=== PATIENT | male | born 1985 | race Caucasian/White ===

== ENCOUNTER 2019-02-24 14:08 | Inpatient (IN) | payer SELFPAY | END 2019-02-28 09:15 | disposition home or self-care (01) | LOC: YASAS 14:08 → Y6N 02-26 18:09 ==

== ENCOUNTER 2020-07-06 09:58 | Inpatient (IN) | payer OTHER ==
--- OUTSIDE RECORDS SUMMARY | 2020-07-06 10:01 | XMS ---
:1985 Author Organization [facility] Support Name Relationship Address Phone APOLONIA THOMPSON PARTNER [address] [place] [address] CHRISTIAN POLLACK SISTER [address] [place] [address] UE Unavailable Unavailable Unavailable GENE GREENWOOD SELF / SAME PATIENT [address] [place] [address] Re-disclosure Warning The records that you are about to access may contain information from federally- assisted alcohol or drug abuse programs. If such information is present, then the following federally mandated warning applies: This information has been disclosed to you from records protected by federal confidentiality rules (42 CFR part 2). The federal rules prohibit you from making any further disclosure of this information unless further disclosure is expressly permitted by the written consent of the person to whom it pertains or as otherwise permitted by 42 CFR part 2. A general authorization for the release of medical or other information is NOT sufficient for this purpose. The Federal rules restrict any use of the information to criminally investigate or prosecute any alcohol or drug abuse patient.The records that you are about to access may contain highly sensitive health information, the redisclosure of which is protected by Article 27-F of the [facility] Public Health law. If you continue you may haveaccess to information: Regarding HIV / AIDS; Provided by facilities licensed or operated by the [facility] Office of Mental Health; or Provided by the [facility] Office for People With Developmental Disabilities. If such information is present, then the following [facility] mandated warning applies: This information has been disclosed to you from confidential records which are protected by state law. State law prohibits you from making any further disclosure of this information without the specific written consent of the person to whom it pertains, or as otherwise permitted by law. Any unauthorized further disclosure in violation of state law may result in a fine or mcc sentence or both. A general authorization for the release of medical or other information is NOT sufficient authorization for further disclosure. Insurance Providers Payer name Policy type Policy ID Covered Covered libertarian's Policy P dona / Coverage libertarian ID relationship to [place] Inf ormation type mcintyre [facility] [id number] SP [id number] STRGY-AFF SELF PAY SP INSURANCE
--- NOTE | 2020-07-06 12:08 | BHS.RME ---
Substance Use & Tx History - Substance Use History Alcohol Substance amount: 2 pints vodka, 2 tall cans Frequency of use: Daily Substance route: Oral Date of Last Use: 07/05/20 Marijuana/Hashish Substance amount: 10/24 Frequency of use: Daily Substance route: Smoking Date of Last Use: 07/05/20 - Last Treatment Date of last treatment: 02/24/19 Where was last treatment: Detox Physical/Psych/Mental Status - Behavior General Behavior: Increased activity (restlessness, agitation) Eye Contact: Normal - Cooperativeness Cooperativeness: Cooperative - Thinking Thought Processes: Tight Thought content: Future oriented Perceptions: Delusions (paranoid, grandiose, bizarre) - Physical Health Problems Is patient presently having any pain?: No Does patient presently have any injuries (include location): No Does patient currently have a fever: No CIWA Nausea/Vomitin Muscle Tremors: 2 Anxiety: 2 Agitation: 2 Paroxysmal Sweats: 2 Orientation: 0-Oriented Tacttile Disturbances: 0-None Auditory Disturbances: 1-Very Mild Visual Disturbances: 0-None Headache: 2-Mild CIWA-Ar Total Score: 13
[2020-07-06 12:30] VITALS: BMI 23.7
--- OUTSIDE RECORDS SUMMARY | 2020-07-06 12:44 | XMS ---
:1985 Author Organization [facility] Support Name Relationship Address Phone APOLONIA THOMPSON PARTNER [address] [place] [address] CHRISTIAN POLLACK SISTER [address] [place] [address] UE Unavailable Unavailable Unavailable GENE GREENWOOD SELF / SAME PATIENT [address] [place] [address] Re-disclosure Warning The records that you are [...] is protected by Article 27-F of the [facility] Public Health law. If you continue you may haveaccess to information: Regarding HIV / AIDS; Provided by facilities licensed or operated by the [facility] Office of Mental Health; or Provided by the [facility] Office for People With Developmental Disabilities. If such information is present, then the following [facility] mandated warning applies: This information has been [...] law may result in a fine or custodial sentence or both. A general authorization for the release of medical or other information is NOT sufficient authorization for further disclosure. Insurance Providers Payer name Policy type Policy ID Covered Covered libertarian's Policy P dona / Coverage libertarian ID relationship to [employer] Inf ormation type mcintyre [employer] [id number] STRGY-AFF [employer] [id number] SP [id number] STRGY-AFF SELF PAY SP INSURANCE
--- NOTE | 2020-07-06 13:00 | HP ---
CIWA Score Nausea/Vomitin Muscle Tremors: 2 Anxiety: 2 Agitation: 2 Paroxysmal Sweats: 2 Orientation: 0-Oriented Tacttile Disturbances: 0-None Auditory Disturbances: 1-Very Mild Visual Disturbances: 0-None Headache: 2-Mild CIWA-Ar Total Score: 13 - Admission Criteria OASAS Guidelines: Admission for Medically Managed Detox: Requires at least one of the followin. CIWA greater than 12 2. Seizures within the past 24 hours 3. Delirium tremens within the past 24 hours 4. Hallucinations within the past 24 hours 5. Acute intervention needed for co occurring medical disorder 6. Acute intervention needed for co occurring psychiatric disorder 7. Severe withdrawal that cannot be handled at a lower level of care (continued vomiting, continued diarrhea, abnormal vital signs) requiring intravenous medication and/or fluids 8. Patient presents the following: CIWA greater than 12 Admission Criteria Met: Admission criteria met Admitting History and Physical - Smoking History Smoking history: Current every day smoker Have you smoked in the past 12 months: Yes Aproximately how many cigarettes per day: 5 - Alcohol/Substance Use Hx Alcohol Use: Yes Admission ROS [facility] Chief Complaint: I need detox Allergies/Adverse Reactions: Allergies Allergy/AdvReac Type Severity Reaction Status Date / Time blueberry Allergy Severe Swelling Verified 07/06/20 12:22 No Known Drug Allergies Allergy Verified 07/06/20 13:57 History of Present Illness: Patient is a 34 years old man who presents for alcohol detox. His last treatment was in february of 2019. Exam Limitations: No Limitations - Ebola screening Have you traveled outside of the country in the last 21 days: No Have you had contact with anyone from an Ebola affected area: No Have you been sick,other than usual withdrawal symptoms: No Do you have a fever: No - Review of Systems Constitutional: Chills, Changes in sleep EENT: reports: No Symptoms Reported Respiratory: reports: No Symptoms reported Cardiac: reports: No Symptoms Reported GI: reports: Nausea, Poor Appetite, Poor Fluid Intake, Abdominal cramping : reports: No Symptoms Reported Musculoskeletal: reports: Joint Pain, Muscle Weakness Integumentary: reports: Sweating Endocrine: reports: No Symptoms Reported Hematology: reports: No Symptoms Reported Psychiatric: reports: Anxious, Depressed Other Systems: Reviewed and Negative Patient History - Patient Medical History Hx Anemia: No Hx Asthma: No Hx Chronic Obstructive Pulmonary Disease (COPD): No Hx Cancer: No Hx Cardiac Disorders: No Hx Congestive Heart Failure: No Hx Hypertension: No Hx Hypercholesterolemia: No Hx Pacemaker: No HX Cerebrovascular Accident: No Hx Seizures: No Hx Dementia: No Hx Diabetes: No Hx Gastrointestinal Disorders: No Hx Liver Disease: No Hx Genitourinary Disorders: No Hx Sexually Transmitted Disorders: No Hx Renal Disease (ESRD): No Hx Hepatitis C: No Hx Depression: Yes Hx Suicide Attempt: No Hx Bipolar Disorder: Yes Hx Schizophrenia: No Other Medical History: Non-hodgkins lymphoma, diagnosed in 2019, in remission - Patient Surgical History Past Surgical History: No - PPD History Previous Implant?: Yes Documented Results: Negative w/proof Implanted On Prior [facility] Admission?: Yes Date: 02/26/19 PPD to be Administered?: Yes - Smoking Cessation Smoking history: Current every day smoker Have you smoked in the past 12 months: Yes Aproximately how many cigarettes per day: 5 Hx Chewing Tobacco Use: No Initiated information on smoking cessation: Yes 'Breaking Loose' booklet given: 07/06/20 - Substances abused Alcohol Substance route: Oral Frequency: Daily Amount used: 1 pint of vodka Age of first use: 19 Date of last use: 07/05/20 Admission Physical Exam BHS - Vital Signs Vital Signs: Vital Signs - 24 hr 07/06/20 12:25 Temperature 97.3 F L Pulse Rate 88 Respiratory 20 Rate Blood Pressure 127/82 - Physical General Appearance: Yes: Irritable, Anxious HEENTM: Yes: Hearing grossly Normal, Normocephalic, Pharynx Normal Respiratory: Yes: Chest Non-Tender, Lungs Clear, Normal Breath Sounds, No Respiratory Distress Neck: Yes: No masses,lesions,Nodules Breast: Yes: Breast Exam Deferred Cardiology: Yes: Regular Rhythm, Regular Rate, S1, S2 Abdominal: Yes: Normal Bowel Sounds, Soft Genitourinary: Yes: Within Normal Limits Back: Yes: Normal Inspection Musculoskeletal: Yes: full range of Motion, Gait Steady, Pelvis Stable Extremities: Yes: Tremors Neurological: Yes: corn grinder II-XII NML intact, Fully Oriented, Alert, Normal Mood/Affect Integumentary: Yes: Cold Lymphatic: Yes: Within Normal Limits - Diagnostic (1) Alcohol dependence with uncomplicated withdrawal Current Visit: No Status: Chronic (2) Nicotine dependence, uncomplicated Current Visit: No Status: Chronic Qualifiers: Nicotine product type: cigarettes Qualified Code(s): F17.210 - Nicotine dependence, cigarettes, uncomplicated Cleared for Admission BHS - Detox or Rehab S Level of Care: Medically Managed Detox Regimen/Protocol: Librium Claeared for Rehab Admission: No Breathalyzer - Breathalyzer Breathalyzer: 0 Urine Drug Screen - Test Device Lot number: [id number] Expiration date: 01/22/22 - Control Is test valid?: Yes - Results Drug screen NEGATIVE: No Urine drug screen results: THC-Marijuana Inpatient Rehab Admission - Rehab Decision to Admit Inpatient rehab admission?: No
[2020-07-06] MEDS ORDERED: ONDANSETRON *ODT* 4 MG TABLET SL PRN (13:06)
[2020-07-06] MEDS ORDERED: MENTHOL/PHENOL 1 EACH UD MM PRN (13:06)
[2020-07-06] MEDS ORDERED: IBUPROFEN 400 MG TABLET (FP) PO PRN (13:06)
[2020-07-06] MEDS ORDERED: hydrOXYzine PAMOATE 25 MG CAPSULE (FP) PO PRN (13:06)
[2020-07-06] MEDS ORDERED: MAGNESIUM CITRATE 300 ML BOTTLE PO PRN (13:06)
[2020-07-06] MEDS ORDERED: MAGNESIUM HYDROX 2400MG/30ML ORAL SUSPENSION 30 ML CUP PO PRN (13:06)
[2020-07-06] MEDS ORDERED: METHOCARBAMOL 500 MG TABLET PO PRN (13:06)
[2020-07-06] MEDS ORDERED: ACETAMINOPHEN 325 MG TABLET (FP) PO PRN ×2 (13:06)
[2020-07-06] MEDS ORDERED: BISMUTH SUBSALICYLATE 524 MG/30 ML UD PO PRN (13:06)
[2020-07-06] MEDS: chlordiazePOXIDE HCL 25 MG CAPSULE PO PRN (14:34)
[2020-07-06] MEDS: chlordiazePOXIDE HCL 25 MG CAPSULE PO SCH ×2 (18:30→22:42)
[2020-07-06] MEDS: MELATONIN 5 MG TABLETS PO SCH (22:42)
[2020-07-06] MEDS: THIAMINE HCL 100 MG TABLET (FP) PO SCH (22:42)
[2020-07-07] MEDS: chlordiazePOXIDE HCL 25 MG CAPSULE PO SCH ×4 (05:55→22:14)
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
[2020-07-07] MEDS: NICOTINE 7 MG/24 HOURS TOPICAL PATCH TD SCH (10:14)
[2020-07-07] MEDS: PRENATAL VITAMINS W/ FOLIC ACID TABLET (FP) PO SCH (10:14)
[2020-07-07] MEDS: NICOTINE POLACRILEX 2 MG GUM BUC PRN (10:14)
--- NOTE | 2020-07-07 12:10 | PN ---
S CIWA - CIWA Score Nausea/Vomitin-No Nausea/No Vomiting Muscle Tremors: 3 Anxiety: 2 Agitation: 2 Paroxysmal Sweats: 2 Orientation: 0-Oriented Tacttile Disturbances: 0-None Auditory Disturbances: 0-None Visual Disturbances: 0-None Headache: 0-None Present CIWA-Ar Total Score: 9 BHS Progress Note (SOAP) Subjective: sweats shakes interrupted sleep constipation body aches Objective: 07/07/20 14:21 Vital Signs Temperature 98.4 F 07/07/20 12:33 Pulse Rate 106 H 07/07/20 12:33 Respiratory Rate 07/07/20 12:33 Blood Pressure 111/70 07/07/20 12:33 O2 Sat by Pulse Oximetry (%) 97 07/07/20 12:33 Laboratory Tests 07/06/20 07/07/20 07/07/20 08:30 08:30 08:30 WBC 7.3 RBC 5.36 Hgb 16.1 Hct 47.0 D MCV 87.6 MCH 30.0 MCHC 34.2 RDW 15.1 D Plt Count 252 D MPV 8.5 Sodium 138 Potassium 4.2 Chloride 102 Carbon Dioxide 31 Anion Gap 6 L BUN 9.4 Creatinine 0.9 Est GFR (CKD-EPI)AfAm 130.52 Est GFR (CKD-EPI)NonAf 112.62 Random Glucose 86 Calcium 9.6 Total Bilirubin 1.1 H AST 38 H ALT 43 Alkaline Phosphatase 92 Total Protein 7.0 Albumin 4.2 Syphilis Serology Non-reactive aaox3 ambulating no acute distress Assessment: 07/07/20 14:22 withdrawals Plan: continue detox [facility] x one increase fluids
[2020-07-07 12:23] LABS: HEMOGLOBIN 16.1 GM/dL (11.7-16.9); MCHC 34.2 g/dl (32.0-35.9); MEAN CELL VOLUME 87.6 fl (80-96); MEAN PLT VOLUME 8.5 fl (7.5-11.1); PLATELET COUNT 252 K/MM3 (134-434); RBC 5.36 M/mm3 (4.00-5.60); RDW 15.1 % (11.9-15.9); WHITE BLOOD COUNT 7.3 K/mm3 (4.0-10.0)
[2020-07-07 12:57] LABS: ALBUMIN 4.2 g/dl (3.4-5.0); BILIRUBIN,TOTAL 1.1 mg/dL (0.2-1); BLOOD UREA NITROGEN 9.4 mg/dL (7-18); CALCIUM 9.6 mg/dL (8.5-10.1); CREATININE 0.9 mg/dL (0.55-1.3); POTASSIUM 4.2 mmol/L (3.5-5.1)
[2020-07-07] MEDS: THIAMINE HCL 100 MG TABLET (FP) PO SCH (22:14)
[2020-07-07] MEDS: MELATONIN 5 MG TABLETS PO SCH (22:16)
[2020-07-07] MEDS: MAG HYDROX/AL HYDROX/SIMETH 30 ML UNIT-DOSE CUP PO PRN (22:33)
[2020-07-08] MEDS: chlordiazePOXIDE HCL 25 MG CAPSULE PO SCH ×4 (06:44→22:23)
[2020-07-08] MEDS: NICOTINE POLACRILEX 2 MG GUM BUC PRN (10:34)
[2020-07-08] MEDS: NICOTINE 7 MG/24 HOURS TOPICAL PATCH TD SCH (10:34)
[2020-07-08] MEDS: PRENATAL VITAMINS W/ FOLIC ACID TABLET (FP) PO SCH (10:34)
--- NOTE | 2020-07-08 12:07 | PN ---
BHS CIWA - CIWA Score Nausea/Vomitin-No Nausea/No Vomiting Muscle Tremors: 3 Anxiety: 1-Mildly Anxious Agitation: 1-Slight > Activity Paroxysmal Sweats: 1-Minimal Palms Moist Orientation: 0-Oriented Tacttile Disturbances: 0-None Auditory Disturbances: 0-None Visual Disturbances: 0-None Headache: 0-None Present CIWA-Ar Total Score: 6 BHS Progress Note (SOAP) Subjective: feeling better sweats anxiety Objective: 07/08/20 12:07 Vital Signs Temperature 98.1 F 07/08/20 09:18 Pulse Rate 95 H 07/08/20 09:18 Respiratory Rate 16 07/08/20 09:18 Blood Pressure 116/84 07/08/20 09:18 O2 Sat by Pulse Oximetry (%) 99 07/08/20 06:35 Laboratory Tests 07/06/20 07/07/20 07/07/20 08:30 08:30 08:30 WBC 7.3 RBC 5.36 Hgb 16.1 Hct 47.0 D MCV 87.6 MCH 30.0 MCHC 34.2 RDW 15.1 D Plt Count 252 D MPV 8.5 Sodium 138 Potassium 4.2 Chloride 102 Carbon Dioxide 31 Anion Gap 6 L BUN 9.4 Creatinine 0.9 Est GFR (CKD-EPI)AfAm 130.52 Est GFR (CKD-EPI)NonAf 112.62 Random Glucose 86 Calcium 9.6 Total Bilirubin 1.1 H AST 38 H ALT 43 Alkaline Phosphatase 92 Total Protein 7.0 Albumin 4.2 Syphilis Serology Non-reactive aaox3 ambulating no acute distress Assessment: 07/08/20 12:07 withdrawals Plan: continue detox
[2020-07-08] MEDS: chlordiazePOXIDE HCL 25 MG CAPSULE PO PRN (12:52)
[2020-07-08] MEDS: MELATONIN 5 MG TABLETS PO SCH (22:23)
[2020-07-08] MEDS: THIAMINE HCL 100 MG TABLET (FP) PO SCH (22:23)
[2020-07-08] MEDS: MAG HYDROX/AL HYDROX/SIMETH 30 ML UNIT-DOSE CUP PO PRN (22:25)
[2020-07-09] MEDS ORDERED: chlordiazePOXIDE HCL 10 MG CAPSULE PO PRN
[2020-07-09] MEDS: chlordiazePOXIDE HCL 10 MG CAPSULE PO SCH ×2 (05:58→10:26)
[2020-07-09 09:05] VITALS: BP 115/78; PULSE 76; TEMP 96
--- NOTE | 2020-07-09 09:57 | DS ---
[facility] Detox Discharge Summary Admission Date: 07/06/20 Discharge Date: 07/09/20 - History Present History: Alcohol Dependence - Physical Exam Results Vital Signs: Vital Signs Temperature 96.0 F L 07/09/20 08:18 Pulse Rate 76 07/09/20 08:18 Respiratory Rate 18 07/09/20 08:18 Blood Pressure 115/78 07/09/20 08:18 O2 Sat by Pulse Oximetry (%) 97 07/09/20 08:18 Pertinent Admission Physical Exam Findings: Vital Signs Temperature 96.0 F L 07/09/20 08:18 Pulse Rate 76 07/09/20 08:18 Respiratory Rate 18 07/09/20 08:18 Blood Pressure 115/78 07/09/20 08:18 O2 Sat by Pulse Oximetry (%) 97 07/09/20 08:18 Laboratory Tests 07/06/20 07/07/20 07/07/20 08:30 08:30 08:30 WBC 7.3 RBC 5.36 Hgb 16.1 Hct 47.0 D MCV 87.6 MCH 30.0 MCHC 34.2 RDW 15.1 D Plt Count 252 D MPV 8.5 Sodium 138 Potassium 4.2 Chloride 102 Carbon Dioxide 31 Anion Gap 6 L BUN 9.4 Creatinine 0.9 Est GFR (CKD-EPI)AfAm 130.52 Est GFR (CKD-EPI)NonAf 112.62 Random Glucose 86 Calcium 9.6 Total Bilirubin 1.1 H AST 38 H ALT 43 Alkaline Phosphatase 92 Total Protein 7.0 Albumin 4.2 Syphilis Serology Non-reactive labs noted aaox3 ambulating no acute distress lungs CTA - Treatment Hospital Course: Detox Protocol Followed, Detoxed Safely, Responded well, Discharged Condition Good, Rehab Referral Accepted - Medication Discharge Medications: Ambulatory Orders NK [No Known Home Medication] 02/24/19 - Diagnosis (1) Alcohol-induced anxiety disorder Current Visit: Yes Status: Acute (2) Alcohol-induced sleep disorder Current Visit: Yes Status: Acute (3) Cannabis dependence Current Visit: Yes Status: Acute (4) Non-Hodgkin lymphoma in remission Current Visit: Yes Status: Chronic (5) Alcohol dependence with uncomplicated withdrawal Current Visit: Yes Status: Acute (6) Elevated liver enzymes Current Visit: Yes Status: Acute (7) Nystagmus Current Visit: No Status: Acute (8) Nicotine dependence, uncomplicated Current Visit: Yes Status: Chronic Qualifiers: Nicotine product type: cigarettes Qualified Code(s): F17.210 - Nicotine dependence, cigarettes, uncomplicated - AMA Did Patient Leave Against Medical Advice: No
[2020-07-09] MEDS: NICOTINE POLACRILEX 2 MG GUM BUC PRN (10:23)
[2020-07-09] MEDS: NICOTINE 7 MG/24 HOURS TOPICAL PATCH TD SCH (10:23)
[2020-07-09] MEDS: PRENATAL VITAMINS W/ FOLIC ACID TABLET (FP) PO SCH (10:23)
[2020-07-09] MEDS: MAG HYDROX/AL HYDROX/SIMETH 30 ML UNIT-DOSE CUP PO PRN (10:25)
[2020-07-10] MEDS ORDERED: chlordiazePOXIDE HCL 10 MG CAPSULE PO SCH (05:00)
[2020-07-11] MEDS ORDERED: chlordiazePOXIDE HCL 10 MG CAPSULE PO ONE (05:00)
== END 2020-07-09 11:15 | disposition home or self-care (01) | DRG 775 ==
LOC: YASAS 09:58 → Y6N 12:41
PROVIDERS: ADMIT Allergy & Immunology; ATTEND Allergy & Immunology
PROC: HZ2ZZZZ Detoxification Services for Substance Abuse Treatment (ICD-10-PCS; principal; 2020-07-06)
DX: F10.230 Alcohol dependence with withdrawal, uncomplicated (principal); F12.20 Cannabis dependence, uncomplicated; F17.210 Nicotine dependence, cigarettes, uncomplicated; F10.280 Alcohol dependence with alcohol-induced anxiety disorder; F10.282 Alcohol dependence with alcohol-induced sleep disorder; H55.00 Unspecified nystagmus; R74.8 Abnormal levels of other serum enzymes; Z85.72 Personal history of non-Hodgkin lymphomas; Z91.410 Personal history of adult physical and sexual abuse; Z91.018 Allergy to other foods; Z56.0 Unemployment, unspecified; Z59.0 Homelessness
CPT/HCPCS: 36415; 80053; 85027; 86780; U0003